=== PATIENT | female | born 1990 | race African-American/Black ===

== ENCOUNTER 2016-09-05 13:51 | Emergency (ER) | payer OTHER ==
[~2016-09-05] VITALS: Ht 180.3 cm; Wt 118.0 kg
[~2016-09-05 13:51] MED LIST: ALBU1AER9 INH; BUPR150T5 PO; BUSP15TA70 PO; SYMIN/8045 INH; [UNRECOGNIZED DRUG - CODE] IO; [UNRECOGNIZED DRUG - CODE] OPR
[2016-09-05 13:55] VITALS: TEMP 36.9; Ht 180.3 cm; Wt 118.0 kg
[2016-09-05] MEDS ORDERED: OXYCODONE HCL IR 5 MG TAB (IMMEDIATE RELEASE) PO STA (14:21)
--- NOTE | 2016-09-05 15:20 | DIAGNOSTIC IMAGING REPORT ---
CERVICAL SPINE 6 VIEWS CLINICAL HISTORY: Right cervical radiculopathy. FINDINGS: AP, lateral, bilateral oblique, swimmer's, and odontoid views of the cervical spine are obtained. No prior studies are available for comparison at the time of dictation. The skeletal structures are well mineralized. There is no radiographic evidence of fracture or subluxation. The odontoid process and lateral masses appear intact on the open mouth view. The spinolaminar line is preserved. Vertebral body height and alignment are maintained. There is mild straightening of the cervical lordosis. The spinous processes appear intact. The intervertebral disc spaces are normal. There is no evidence of neuroforaminal stenosis on the oblique views. The prevertebral soft tissues are within normal limits. Visualized apical lung parenchyma appears clear. IMPRESSION: Unremarkable radiographic assessment of the cervical spine. Electronically signed by: Aneesh Fowler M.D. 09/05/2016 3:18 PM Dictated Date/Time: 09/05/2016 3:17 PM
[2016-09-05] MEDS ORDERED: IBUP-1428 PO (15:26)
[2016-09-05] MEDS ORDERED: OXYC1TAB3 PO (15:26)
[2016-09-05] MEDS ORDERED: METH4PAK PO (15:26)
[2016-09-05 15:45] VITALS: BP 113/67; PULSE 75; O2SAT 100
[2016-09-05] MEDS ORDERED: OXYCODONE IR HOME PACK PO ONE (15:45)
--- NOTE | 2016-09-05 21:33 | EMERGENCY ROOM VISIT NOTE ---
History First contact with patient: 14:14 Chief Complaint: NECK PAIN Stated Complaint: NECK AND BACK, SHOULDER STIFF AND PAINFUL- History of Present Illness The patient is a 25 year old female who presents to the Emergency Room with complaints of severe neck pain radiating into her right shoulder, right subscapular region and right upper arm. The patient reports that her symptoms developed at work. 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 She does not recall any specific injury. She did advise her shift production supervisor of her discomfort. The patient denies any prior history of neck injuries or chronic neck pain. Her pain is worsened with movement of the neck. She denies any chest pain, shortness of breath or headache. She rates her discomfort a 10 out of 10 which is worsened with movement of the neck. Review of Systems 10 system review was performed and was negative except for pertinent positives and negatives as indicated in history of present illness Past Medical/Surgical History Medical Problems: (1) Asthma (2) Bronchitis Family History Diabetes mellitus Hypertension Social History Smoking Status: Never Smoker Alcohol Use: occasionally Drug Use: none Marital Status: single Housing Status: lives with family Occupation Status: employed Current/Historical Medications Scheduled Methylprednisolone (Medrol Dosepak), 0 PO DAILY Scheduled PRN Ibuprofen (Motrin), 800 MG PO Q8H PRN for Pain Oxycodone Ir (Roxicodone Ir), 1-2 TAB PO Q4H PRN for Pain Allergies Coded Allergies: No Known Allergies (Unverified , 09/05/16) Physical Exam Vital Signs Date Time Temp Pulse Resp B/P Pulse Ox O2 Delivery O2 Flow Rate FiO2 09/05/16 15:45 75 18 113/67 100 09/05/16 13:55 36.9 73 16 131/80 98 Room Air Physical Exam CONSTITUTIONAL: Obese female, alert and oriented X 3 with positive affect. Patient appears in moderate discomfort and is crying. HEENT: Normocephalic, atraumatic. Pupils equal, round and reactive. Ears and nares are clear. No subconjunctival hemorrhage or scleral icterus. NECK: Examination shows mild tenderness to palpation through the right lower cervical nerve root region. No muscle rigidity or spasm noted. Positive left lateral gaze test. RESPIRATORY: Clear to auscultation bilaterally with no wheezing, crackles, rhonchi or stridor. CARDIOVASCULAR: Regular rate and rhythm with no murmurs, rubs or gallops. MUSCULOSKELETAL: Examination shows tenderness to palpation through the right interscapular border. Range of motion of the shoulder does not worsen her pain. No focal tenderness to palpation over the scapula, clavicle or acromioclavicular joint. Equal hand senior solutions consultant bilaterally. Distal pulses are intact. INTEGUMENTARY: No rash or other significant dermatologic conditions noted. NEUROLOGIC: No focal neurologic deficits noted. Right upper extremity median, radial and ulnar motor and sensory are intact. Deltoid sensation is intact. Medical Decision & Procedures ER Provider Diagnostic Interpretation: My interpretation of cervical spine x-rays does not show any acute fractures, subluxation or lordotic reversal. Radiologist report is as follows: CERVICAL SPINE 6 VIEWS CLINICAL HISTORY: Right cervical radiculopathy. FINDINGS: AP, lateral, bilateral oblique, swimmer's, and odontoid views of the cervical spine are obtained. No prior studies are available for comparison at the time of dictation. The skeletal structures are well mineralized. There is no radiographic evidence of fracture or subluxation. The odontoid process and lateral masses appear intact on the open mouth view. The spinolaminar line is preserved. Vertebral body height and alignment are maintained. There is mild straightening of the cervical lordosis. The spinous processes appear intact. The intervertebral disc spaces are normal. There is no evidence of neuroforaminal stenosis on the oblique views. The prevertebral soft tissues are within normal limits. Visualized apical lung parenchyma appears clear. IMPRESSION: Unremarkable radiographic assessment of the cervical spine. Medications Administered Medications (Trade) Dose Ordered Sig/Isabel Route Start Time Stop Time Status Last Admin Dose Admin Oxycodone HCl (Roxicodone Immediate Rel Tab) 5 mg NOW STAT PO 09/05/16 14:21 09/05/16 14:22 DC 09/05/16 14:34 5 MG Prednisone (PredniSONE TAB) 60 mg NOW STAT PO 09/05/16 14:21 09/05/16 14:22 DC 09/05/16 14:34 60 MG Oxycodone HCl (Roxicodone Immediate Rel 5MG Home Pack) 1 homepack UD ONCE PO 09/05/16 15:45 09/05/16 15:46 DC 09/05/16 15:41 1 HOMEPACK ED Course Patient history and physical exam were performed. Nurse's notes were reviewed. The patient refused any intramuscular or parenteral analgesics. She was administered OxyIR 5 mg and prednisone 60 mg orally. X-rays of the cervical spine were normal. The patient was advised that her history and clinical exam is consistent with an acute cervical radiculitis. She was encouraged to intermittently apply ice to the base of the neck. She was encouraged to avoid sleeping on her side or stomach. The patient was provided a prescription for a Medrol Dosepak and OxyIR 5 mg. She was encouraged to alternate ibuprofen and Tylenol for baseline pain relief. The patient was instructed to follow-up with her Worker's Compensation physician for further reevaluation and management. The patient voiced understanding of all discharge instructions, was happy with plan of care, and rated her pain a 5 out of 10 at the conclusion of my exam. Medical Decision Impression Primary Impression: Radiculitis of right cervical region Departure Information Dispostion Home / Self-Care Prescriptions Ibuprofen (Motrin) 800 Mg Tab 800 MG PO Q8H Y for Pain, #30 TAB For Initial Treatment Prov: Saad Hatch PA 09/05/16 Oxycodone Ir (Roxicodone Ir) 5 Mg Tab 1-2 TAB PO Q4H Y for Pain, #15 TAB For Initial Treatment Prov: Saad Hatch PA 09/05/16 Methylprednisolone (MEDROL DOSEPAK) 4 Mg Bashir 0 PO DAILY, #1 PKT Prov: Saad Hatch PA 09/05/16 Forms HOME CARE DOCUMENTATION FORM, IMPORTANT VISIT INFORMATION Patient Instructions [facility], ED Cervical Radiculopathy Additional Instructions Intermittently apply ice to neck. Avoid sleeping on your side or stomach. Ibuprofen 800 mg and/or Tylenol 1000 mg every 8 hours. You may also alternate these medications for more effective pain relief: Ibuprofen --4 HRS--> Tylenol --4 HRS--> ibuprofen --4 HRS--> Tylenol .... Take Medrol Dosepak as prescribed. OxyIR if needed for worse pain. Do not drink or drive while taking OxyIR. Follow-up with your Worker's Compensation physician for further reevaluation and management.
== END 2016-09-05 15:45 | disposition home or self-care (01) ==
LOC: C.EDB 13:53 → C.EDD 15:45
DX: M54.12 Radiculopathy, cervical region (principal); E66.9 Obesity, unspecified; J45.909 Unspecified asthma, uncomplicated; Z82.49 Family history of ischemic heart disease and other diseases of the circulatory system; Z83.3 Family history of diabetes mellitus

== ENCOUNTER 2017-04-07 20:00 | Emergency (ER) | payer OTHER ==
[~2017-04-07] VITALS: Ht 177.8 cm; Wt 128.2 kg
[2017-04-07 20:08] VITALS: TEMP 37; Ht 177.8 cm; Wt 128.2 kg
[2017-04-07 20:47] LABS: URINE APPEARANCE CLEAR (CLEAR); URINE BILIRUBIN NEG (NEG); URINE COLOR YELLOW; URINE NITRITE NEG (NEG); URINE PH 6.5 (4.5-7.5); URINE SPECIFIC GRAVITY 1.022 (1.000-1.030); UROBILINOGEN NEG (NEG)
[2017-04-07 20:56] LABS: MANUAL MICROSCOPIC REQUIRED? NO; REVIEW REQ? NO
--- NOTE | 2017-04-07 21:01 | EMERGENCY ROOM VISIT NOTE ---
History Report prepared by Hilario: Ajit Fernandez Under the Supervision of: Dr. Dominic Ayala M.D. First contact with patient: 20:19 Chief Complaint: SYNCOPE (NEAR SYNCOPE) Stated Complaint: ALMOST FAINTED, FEEL WEAK, ABDOMINAL PAIN History of Present Illness The patient is a 26 year old black female with a past medical history of a c- section, asthma, ovarian cyst who presents to the ED with a cc of fatigue 2 days after receiving the flu shot. The patient received a flu shot a week ago. She reports she works at [employer] and does not think that she was exposed to illness. She was feeling lightheaded and weak today and decided to present. Positive right-sided lower abdominal pain, nausea, left-sided chest pain under her breast, not exertional, weight gain. Negative swelling in her legs, problems eating and drinking, vomiting, drug, alcohol, tobacco, recent antibiotic use, abnormal menstrual period. Patient also was concerned about not being able to climax. Source of History: patient Onset: seven days ago Position: other (global) Quality: other (dizziness) Timing: constant Associated Symptoms: + chest pain, + nausea, + abdominal pain, No vomiting Note: Associated symptoms: weight gain Denies: problems eating or drinking Review of Systems See HPI for pertinent positives and negatives. A total of ten systems were reviewed and were otherwise negative. Past Medical & Surgical Medical Problems: (1) Asthma (2) Bronchitis (3) Ovarian cyst Surgical Problems: (1) Previous section Family History Diabetes mellitus FH: ovarian cancer Hypertension Social History Smoking Status: Former Smoker Smokeless Tobacco Use: No Alcohol Use: none Drug Use: none Marital Status: single Housing Status: lives with family Occupation Status: employed Current/Historical Medications No Active Prescriptions or Reported Meds Allergies Coded Allergies: No Known Allergies (Unverified , 04/07/17) Physical Exam Vital Signs Date Time Temp Pulse Resp B/P (MAP) Pulse Ox O2 Delivery O2 Flow Rate FiO2 04/08/17 00:21 74 18 126/68 97 Room Air 04/07/17 22:58 74 20 121/61 98 Room Air 04/07/17 21:17 70 20 122/70 99 Room Air 82 125/75 86 127/83 04/07/17 21:17 82 20 125/75 99 Room Air 04/07/17 21:17 99 Room Air 04/07/17 20:08 37.0 80 20 134/82 100 Room Air Physical Exam GENERAL: Awake, alert, well-appearing, NAD HENT: Normocephalic, atraumatic. EYES: Normal conjunctiva. Sclera non-icteric. NECK: Supple. No nuchal rigidity. FROM. RESPIRATORY: CTAB, no rhonchi, wheezing, crackles CARDIAC: RRR, no MRG ABDOMEN: Soft, NTND, BS+, Surgical scars noted. Negative obturator. Negative psoas. MSK: No chest wall TTP, no LE edema NEURO: GCS 15, CN 2-12 intact, moves all 4s on command SKIN: No rash or jaundice noted. Medical Decision & Procedures ER Provider Diagnostic Interpretation: US pelvic/endovag: Uterus and endometriium are within normal limits. Probable involuting follicle or cyst within the right ovary measured 2.1 cm. Otherwise, the ovaries are unremarkable. No torsion. No free fluid within the pelvis Radiologist: Curtis Hill MD Laboratory Results 04/07/17 20:50 Red Blood Count 4.27, Mean Corpuscular Volume 88.5, Mean Corpuscular Hemoglobin 28.6, Mean Corpuscular Hemoglobin Concent 32.3, Mean Platelet Volume 8.9, Neutrophils (%) (Auto) 45.3, Lymphocytes (%) (Auto) 40.0, Monocytes (%) (Auto) 11.8, Eosinophils (%) (Auto) 2.7, Basophils (%) (Auto) 0.1, Neutrophils # (Auto ) 3.06, Lymphocytes # (Auto) 2.71, Monocytes # (Auto) 0.80, Eosinophils # (Auto ) 0.18, Basophils # (Auto) 0.01 04/07/17 20:50 Test 04/07/17 20:35 04/07/17 20:50 Urine Color YELLOW Urine Appearance CLEAR (CLEAR) Urine pH 6.5 (4.5-7.5) Urine Specific [place] 1.022 (1.000-1.030) Urine Protein NEG (NEG) Urine Glucose (UA) NEG (NEG) Urine Ketones NEG (NEG) Urine Occult Blood NEG (NEG) Urine Nitrite NEG (NEG) Urine Bilirubin NEG (NEG) Urine Urobilinogen NEG (NEG) Urine Leukocyte Esterase NEG (NEG) Urine Test NEG (NEG) White Blood Count 6.77 K/uL (4.8-10.8) Red Blood Count 4.27 M/uL (4.2-5.4) Hemoglobin 12.2 g/dL (12.0-16.0) Hematocrit 37.8 % (37-47) Mean Corpuscular Volume 88.5 fL (80-100) Mean Corpuscular Hemoglobin 28.6 pg (25-34) Mean Corpuscular Hemoglobin Concent 32.3 g/dl (32-36) Platelet Count 230 K/uL (130-400) Mean Platelet Volume 8.9 fL (7.4-10.4) Neutrophils (%) (Auto) 45.3 % Lymphocytes (%) (Auto) 40.0 % Monocytes (%) (Auto) 11.8 % Eosinophils (%) (Auto) 2.7 % Basophils (%) (Auto) 0.1 % Neutrophils # (Auto) 3.06 K/uL (1.4-6.5) Lymphocytes # (Auto) 2.71 K/uL (1.2-3.4) Monocytes # (Auto) 0.80 K/uL (0.11-0.59) Eosinophils # (Auto) 0.18 K/uL (0-0.5) Basophils # (Auto) 0.01 K/uL (0-0.2) RDW Standard Deviation 40.0 fL (36.4-46.3) RDW Coefficient of Variation 12.4 % (11.5-14.5) Immature Granulocyte % (Auto) 0.1 % Immature Granulocyte # (Auto) 0.01 K/uL (0.00-0.02) Anion Gap 9.0 mmol/L (3-11) Est Creatinine Clear Calc Drug Dose 121.8 ml/min Estimated GFR () 87.5 Estimated GFR (Non- 75.5 BUN/Creatinine Ratio 10.4 (10-20) Calcium Level 8.8 mg/dl (8.5-10.1) Phosphorus Level 2.9 mg/dl (2.5-4.9) Magnesium Level 2.1 mg/dl (1.8-2.4) Total Bilirubin 0.3 mg/dl (0.2-1) Direct Bilirubin < 0.1 mg/dl (0-0.2) Aspartate Amino Transf (AST/SGOT) 17 U/L (15-37) Alanine Aminotransferase (ALT/SGPT) 22 U/L (12-78) Alkaline Phosphatase 55 U/L (45-117) Total Protein 7.3 gm/dl (6.4-8.2) Albumin 3.6 gm/dl (3.4-5.0) Thyroid Stimulating Hormone (TSH) 1.970 uIu/ml (0.300-4.500) Laboratory results reviewed by me Medications Administered Medications (Trade) Dose Ordered Sig/Isabel Route Start Time Stop Time Status Last Admin Dose Admin Morphine Sulfate (MoRPHine SULFATE INJ) 8 mg NOW STAT IV 04/07/17 21:31 04/07/17 21:32 DC 04/07/17 22:03 8 MG Ondansetron HCl (Zofran Inj) 4 mg NOW STAT IV 04/07/17 21:31 04/07/17 21:32 DC 04/07/17 21:56 4 MG ECG Indication: abdominal pain Rate (beats per minute): 67 Rhythm: normal sinus Findings: LBBB, Q waves (lead III), other (wide QRS, Normal axis, no other STS change or TWI) ED Course 2047: The patient was evaluated in room B03B. A complete history and physical exam was performed. 2311: I reevaluated the patient after her ultrasound. She is eating and feeling better. Medical Decision The patient is a 26 year old black female with a past medical history of a c- section, asthma, ovarian cyst who presents to the ED with a cc of constant dizziness beginning seven days ago. Differential diagnoses include: appendicitis , diverticulitis, PUD, biliary pathology, UTI, pancreatitis, obstruction, mesenteric ischemia, aortic pathology, infections, inflammatory bowel disease, renal colic, as well as others were entertained. Patient was seen and evaluated the bedside. Patient had been complaining of multiple symptoms. She included lightheadedness some left-sided reproducible chest wall pain that was nonexertional without any lower extremity swelling. No history DVT or PE. Patient denies any cough fevers or chills. She denies any hemoptysis. Patient has had nausea but without vomiting. Patient is also concerned that she has had some inability to climax during sexual intercourse. Patient was also concerned about having a prior cyst and showed that she's had some right lower quadrant right lower pelvic pain. Patient denies any vaginal bleeding or discharge. Patient denies any dysuria or history of kidney stones. Patient is a very soft abdomen on exam but given the patient's history a ultrasound was obtained. Patient did have her blood work completed which showed that she had no abnormalities in her blood work. Patient's urinalysis was negative. UPT was negative. Patient did have a negative chest film. Patient's ultrasound was negative acute. ECG NSR, isolated Q wave and borderline wide QRS and LBBB pattern. Patient ambulated, had no pain, no exertional symptoms and no chest pain. There are no prior EKGs to compare. EKG does show prolonged QTc. Given that her fatigue and lightheadedness was without palpitations and primarily after receiving a flu shot with infectious symptoms, this is more likely to be an incidental finding. Nevertheless, she was told she needs to follow up as outpatient with cardiology for further evaluation. Upon reassessment patient was feeling much improved. Patient furthermore was able to eat without issue. Do not believe the patient requires any surgical or medical management this time. Patient is feeling well. After discussion with patient she is agreeable to outpatient follow up. Patient was deemed suitable for outpatient follow-up and treatment. All questions were answered. Patient was given strict follow-up, discharge, and return precautions. All questions were answered. Patient was deemed suitable for outpatient follow-up at this time. Patient agreed with the plan of care and was safely discharged home. Of note I did review the patient's chart and EKG after discharge. After reviewing the EKG a second time I was concerned about undiagnosed WPW given the short MT and wide QRS and likely delta wave. I called our welfare case worker and had them arrange appropriate follow up which we discussed as PCP and/or cardiology f /u JANIA w/ expectation if only PCP f/u was obtained this would be done so w/ expectation to obtain cards referral. Impression Primary Impression: Abdominal pain Additional Impressions: Fatigue URI (upper respiratory infection) Yxaid-Texwebvtk-Wrlfe (WPW) pattern seen on electrocardiography Scribe Attestation The scribe's documentation has been prepared under my direction and personally reviewed by me in its entirety. I confirm that the note above accurately reflects all work, treatment, procedures, and medical decision making performed by me. Departure Information Dispostion Home / Self-Care Prescriptions No Active Prescriptions or Reported Meds Referrals No Doctor, Assigned (PCP) Wyatt Hoover MD Patient Instructions Abdominal Pain, My [facility] Additional Instructions Please return to the emergency department if you have worsening or recurrent symptoms not amenable to at-home treatment. Please call for a follow-up appointment with her primary care physician. Please take your medications as prescribed. If you have other concerns and/or complaints please feel free to also call your primary care physician's office or return the ED for further evaluation, management, and treatment. You received narcotic or benzodiazepene medication while in the emergency room today. This is an addictive medication that may cause drowziness as well as constipation. Do not drive, operate heavy machinery, or drink alcohol under the influence of this medication. You may take 600 mg Ibuprofen every 6 hours as needed for pain with food for no more than 2 consecutive days. You may take tylenol 1000 mg every 6 hours as needed for pain. You may take motrin and tylenol separately or at the same time. Take your medications as prescribed. If taking an antibiotic consider taking a probiotic and/or eating yogurt, but at the least, please take with food as it can cause upset stomach. You have been examined and treated today on an emergency basis only. This is not a substitute for, or an effort to provide, complete comprehensive medical care. It is impossible to recognize and treat all injuries or illnesses in a single emergency department visit. It is therefore important that you follow up closely with [facility], your PCP, and/or your specialist(s). Call as soon as possible for an appointment. Thank you for your time and consideration. I look forward to speaking with you again soon. Please don't hesitate to call us if you have any questions. Problem Qualifiers Primary Impression: Abdominal pain Abdominal location: right lower quadrant Qualified Codes: R10.31 - Right lower quadrant pain Additional Impressions: Fatigue Fatigue type: unspecified Qualified Codes: R53.83 - Other fatigue URI (upper respiratory infection) URI type: unspecified URI Qualified Codes: J06.9 - Acute upper respiratory infection, unspecified
[2017-04-07 21:02] LABS: BASO % 0.1 %; BASO ABS # 0.01 K/uL (0-0.2); COMPLETE YES; EOS % 2.7 %; HEMATOCRIT 37.8 % (37-47); IG% 0.1 %; LYMPH ABS # 2.71 K/uL (1.2-3.4); MEAN CELL VOLUME 88.5 fL (80-100); MEAN CORPUSCULAR HEMOGLOBIN 28.6 pg (25-34); MEAN CORPUSCULAR HGB CONC 32.3 g/dl (32-36); MEAN PLATELET VOLUME 8.9 fL (7.4-10.4); MONO % 11.8 %; NEUT % 45.3 %; PLATELET COUNT 230 K/uL (130-400); RED BLOOD COUNT 4.27 M/uL (4.2-5.4); WHITE BLOOD COUNT 6.77 K/uL (4.8-10.8)
--- NOTE | 2017-04-07 21:16 | DIAGNOSTIC IMAGING REPORT ---
CHEST ONE VIEW PORTABLE HISTORY: EVALUATE ALTERED MENTAL STATUS/WEAKNESS COMPARISON: Chest 01/03/2016. FINDINGS: The lungs are clear. Cardiac silhouette is normal in size. No pleural effusions. No pneumothorax. IMPRESSION: No acute process. Electronically signed by: Edu Archibald M.D. 04/07/2017 9:15 PM Dictated Date/Time: 04/07/2017 9:15 PM
[2017-04-07 21:17] VITALS: O2SAT 99
[2017-04-07 21:27] LABS: ALT/SGPT 22 U/L (12-78); BLOOD UREA NITROGEN 11 mg/dl (7-18); BUN/CREATININE RATIO 10.4 (10-20); CALCIUM 8.8 mg/dl (8.5-10.1); CARBON DIOXIDE 28 mmol/L (21-32); CHLORIDE 103 mmol/L (98-107); CREATININE 1.03 mg/dl (0.60-1.20); GLUCOSE 82 mg/dl (70-99); MAGNESIUM 2.1 mg/dl (1.8-2.4); POTASSIUM 3.8 mmol/L (3.5-5.1); SODIUM 139 mmol/L (136-145)
[2017-04-07] MEDS ORDERED: ONDANSETRON INJ 2 MG/ML 2 ML VIAL IV STA (21:31)
[2017-04-07] MEDS ORDERED: MoRPHine SULFATE 10 MG/ML CARP/VIAL IV STA (21:31)
[2017-04-07 21:38] LABS: ALKALINE PHOSPHATASE 55 U/L (45-117); AST/SGOT 17 U/L (15-37); PHOSPHORUS 2.9 mg/dl (2.5-4.9)
[2017-04-08 00:21] VITALS: BP 126/68; PULSE 74; O2SAT 97
--- NOTE | 2017-04-08 06:51 | DIAGNOSTIC IMAGING REPORT ---
PELVIC COMPLETE NON OB CLINICAL HISTORY: R lower abdominal pain; prior h/o of ovarian cyst PAIN. COMPARISON STUDY: 10/12/2015 FINDINGS: The uterus measured 11 cm. The endometrial stripe measured 12 mm. The right ovary measured 2.3 cm. 2 cm right ovarian cyst The left ovary measured 2.1 cm. There is no ultrasonographic evidence of ovarian torsion. It should be noted that ovarian torsion can be present with normal Doppler ultrasonographic findings. There was no evidence of pathologic free pelvic fluid. IMPRESSION: 1. 2 cm right ovarian cyst. 2. Mild thickening of the endometrium 12 mm unchanged in the prior study. 3. Normal vascular flow to both ovaries. The above report was generated using voice recognition software. It may contain grammatical, syntax or spelling errors. Electronically signed by: Gary Sullivan M.D. 04/08/2017 6:49 AM Dictated Date/Time: 04/08/2017 6:47 AM
== END 2017-04-08 00:23 | disposition home or self-care (01) ==
LOC: C.EDB 20:01
DX: R10.31 Right lower quadrant pain (principal); R53.83 Other fatigue; J06.9 Acute upper respiratory infection, unspecified; I45.6 Pre-excitation syndrome; J45.909 Unspecified asthma, uncomplicated; N83.209 Unspecified ovarian cyst, unspecified side; I44.7 Left bundle-branch block, unspecified; Z87.891 Personal history of nicotine dependence; Z83.3 Family history of diabetes mellitus; Z82.49 Family history of ischemic heart disease and other diseases of the circulatory system; Z80.41 Family history of malignant neoplasm of ovary

== ENCOUNTER 2017-07-02 20:31 | Emergency (ER) | payer OTHER ==
[~2017-07-02] VITALS: Ht 180.3 cm; Wt 126.4 kg
[2017-07-02 20:41] VITALS: TEMP 37; Ht 180.3 cm; Wt 126.4 kg
[2017-07-02] MEDS ORDERED: CEFTRIAXONE SOD INJ 1 GM ADDVIAL IV STA (21:16)
[2017-07-02] MEDS ORDERED: KETOROLAC TROMETHAMINE 30 MG/ML VIAL IV STA (21:16)
[2017-07-02] MEDS ORDERED: HYDROCODONE/HOMATROPINE SYRUP 5MG/1.5MG 5ML UDP PO STA (21:16)
[2017-07-02] MEDS ORDERED: AMOXICILLIN/CLAVULANATE TAB 875 MG TAB PO ONE (21:30)
--- NOTE | 2017-07-02 21:32 | EMERGENCY ROOM VISIT NOTE ---
History Report prepared by Hilario: Savi Desouza Under the Supervision of: Dr. Nirav Sol M.D. 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 She notes the pain in her mouth is aching. She states that she also has a sore throat and a headache. Source of History: patient Onset: 5 days bta Position: head (face), teeth Symptom Intensity: unbearable Quality: ache Associated Symptoms: + headache, + sorethroat Review of Systems See HPI for pertinent positives & negatives. A total of 10 systems reviewed and were otherwise negative. Past Medical & Surgical Medical Problems: (1) Asthma (2) Bronchitis (3) Ovarian cyst Surgical Problems: (1) Previous section Family History Diabetes mellitus FH: ovarian cancer Hypertension Social History Smoking Status: Never Smoker Alcohol Use: none Drug Use: none Marital Status: single Housing Status: lives with family Occupation Status: employed Current/Historical Medications Scheduled Amoxicillin & Pot Clavulanate (Augmentin 875-125 mg), 1 TAB PO BID Fluticasone Propionate (Inhala (Flovent Diskus), 2 PUFFS INH BID Mometasone Furoate (Nasal) (Mometasone Furoate), 2 SPRAYS CHRISTINE DAILY Sertraline (Zoloft), 50 MG PO DAILY Scheduled PRN Levalbuterol Tartrate (Levalbuterol Tartrate Hfa), 1 PUFF INH Q4H PRN for Wheezing Oxycodone/Acetaminophen 5MG/325MG (Percocet 5MG/325MG), 1-2 TABLETS PO Q6 PRN for Pain Allergies Coded Allergies: No Known Allergies (Unverified , 04/07/17) Physical Exam Vital Signs Date Time Temp Pulse Resp B/P (MAP) Pulse Ox O2 Delivery O2 Flow Rate FiO2 07/02/17 22:28 70 18 140/69 99 Room Air 07/02/17 20:41 37.0 72 18 133/83 99 Room Air Physical Exam GENERAL: Patient is a healthy-appearing well-nourished female HEAD: Normocephalic atraumatic. no evidence of Og's angina. Able to swallow her own saliva. Tender to the left zygomatic arch. Poor dentition to her molars. EYES: Ocular movements intact pupils equal and react to light OROPHARYNX mucous membranes are moist no exudates present no erythema or edema present NECK: Supple no nuchal rigidity CHEST: Good equal expansion LUNGS: Clear and equal to auscultation CARDIAC: Normal S1 and S2 ABDOMEN: Soft nontender no guarding BACK: No CVA tenderness EXTREMITIES: No pain upon palpation normal muscle strength in all groups no clubbing cyanosis or edema NEURO: Patient is following commands and answering questions appropriately. Alert and oriented x3 Cranial Nerves 2-12 grossly intact Medical Decision & Procedures ER Provider Diagnostic Interpretation: Radiology results as stated below per my review and radiologist interpretation: FACIAL BONES-MXILLOFAC WITHOUT CLINICAL HISTORY: 26 years-old Female presenting with Pt c/o facial swelling, recent dental work on the right. TECHNIQUE: Multidetector CT of the face was performed without the use of intravenous contrast. IV contrast: None. A dose lowering technique was used consistent with the principles of ALARA (as low as reasonably achievable). COMPARISON: 04/30/2015. CT DOSE (mGy.cm): The estimated cumulative dose is 659.52 mGy.cm. FINDINGS: Lining Mechanic topogram: Unremarkable. Mild mucosal thickening in the left maxillary sinus. Remainder of paranasal sinuses and mastoid air cells clear. Dental caries noted diffusely in the maxillary teeth most prominently in the right maxillary third molar and left maxillary second premolar and first molar. The left maxillary first premolar also demonstrates periapical lucency. No other sites of periapical lucency. No significant superficial soft tissue inflammatory change. No evidence of odontogenic abscess allowing for noncontrast technique. Numerous prominent lymph nodes likely reactive. Upper cervical spine normal. IMPRESSION: 1. Extensive dental caries most pronounced in the maxillary teeth. 2. Periapical lucency at the left maxillary first premolar raises concern for periapical abscess. 3. No extensive evidence of odontogenic inflammatory change or odontogenic abscess. Electronically signed by: Julio De La Paz M.D. 07/02/2017 10:25 PM Dictated Date/Time: 07/02/2017 10:20 PM Laboratory Results 07/02/17 21:26 Red Blood Count 4.42, Mean Corpuscular Volume 88.9, Mean Corpuscular Hemoglobin 28.5, Mean Corpuscular Hemoglobin Concent 32.1, Mean Platelet Volume 8.8, Neutrophils (%) (Auto) 42.7, Lymphocytes (%) (Auto) 46.4, Monocytes (%) (Auto) 8.8, Eosinophils (%) (Auto) 1.8, Basophils (%) (Auto) 0.3, Neutrophils # (Auto) 2.57, Lymphocytes # (Auto) 2.80, Monocytes # (Auto) 0.53, Eosinophils # (Auto) 0.11, Basophils # (Auto) 0.02 07/02/17 21:26 Test 07/02/17 21:26 07/02/17 21:28 White Blood Count 6.03 K/uL (4.8-10.8) Red Blood Count 4.42 M/uL (4.2-5.4) Hemoglobin 12.6 g/dL (12.0-16.0) Hematocrit 39.3 % (37-47) Mean Corpuscular Volume 88.9 fL (80-100) Mean Corpuscular Hemoglobin 28.5 pg (25-34) Mean Corpuscular Hemoglobin Concent 32.1 g/dl (32-36) Platelet Count 304 K/uL (130-400) Mean Platelet Volume 8.8 fL (7.4-10.4) Neutrophils (%) (Auto) 42.7 % Lymphocytes (%) (Auto) 46.4 % Monocytes (%) (Auto) 8.8 % Eosinophils (%) (Auto) 1.8 % Basophils (%) (Auto) 0.3 % Neutrophils # (Auto) 2.57 K/uL (1.4-6.5) Lymphocytes # (Auto) 2.80 K/uL (1.2-3.4) Monocytes # (Auto) 0.53 K/uL (0.11-0.59) Eosinophils # (Auto) 0.11 K/uL (0-0.5) Basophils # (Auto) 0.02 K/uL (0-0.2) RDW Standard Deviation 40.8 fL (36.4-46.3) RDW Coefficient of Variation 12.6 % (11.5-14.5) Immature Granulocyte % (Auto) 0.0 % Immature Granulocyte # (Auto) 0.00 K/uL (0.00-0.02) Anion Gap 3.0 mmol/L (3-11) Est Creatinine Clear Calc Drug Dose 134.3 ml/min Estimated GFR () 97.7 Estimated GFR (Non- 84.3 BUN/Creatinine Ratio 8.0 (10-20) Calcium Level 9.0 mg/dl (8.5-10.1) Total Bilirubin 0.2 mg/dl (0.2-1) Direct Bilirubin < 0.1 mg/dl (0-0.2) Aspartate Amino Transf (AST/SGOT) 14 U/L (15-37) Alanine Aminotransferase (ALT/SGPT) 20 U/L (12-78) Alkaline Phosphatase 51 U/L (45-117) Total Protein 7.5 gm/dl (6.4-8.2) Albumin 3.6 gm/dl (3.4-5.0) Urine Color YELLOW Urine Appearance CLOUDY (CLEAR) Urine pH 5.5 (4.5-7.5) Urine Specific [place] 1.029 (1.000-1.030) Urine Protein NEG (NEG) Urine Glucose (UA) NEG (NEG) Urine Ketones TRACE (NEG) Urine Occult Blood NEG (NEG) Urine Nitrite NEG (NEG) Urine Bilirubin NEG (NEG) Urine Urobilinogen NEG (NEG) Urine Leukocyte Esterase NEG (NEG) Urine WBC (Auto) 5-10 /hpf (0-5) Urine RBC (Auto) 0-4 /hpf (0-4) Urine Hyaline Casts (Auto) 1-5 /lpf (0-5) Urine Epithelial Cells (Auto) >30 /lpf (0-5) Urine Bacteria (Auto) 1+ (NEG) Date/Time Source Procedure Growth Status 07/02/17 21:15 Throat Group A Streptococcus Screen - Final SPECIMEN NEGATIVE FOR GROUP A BETA ST... Complete 07/02/17 21:15 Throat Group A Streptococcus Screen (GHADA) - Final NO BETA STREP. ISOLATED. Complete Labs reviewed by ED physician. Medications Administered Medications (Trade) Dose Ordered Sig/Isabel Route Start Time Stop Time Status Last Admin Dose Admin Ketorolac Tromethamine (Toradol Inj) 30 mg NOW STAT IV 07/02/17 21:16 07/02/17 21:20 DC 07/02/17 21:24 30 MG Ceftriaxone Sodium (Rocephin Inj) 1 gm NOW STAT IV 07/02/17 21:16 2/10/18 21:20 DC 07/02/17 21:24 1 GM Hydrocodone Bit/ Homatropine Methylb (Hycodan Syrup) 5 ml NOW STAT PO 07/02/17 21:16 07/02/17 21:20 DC 07/02/17 21:24 5 ML Amoxicillin/ Clavulanate Potassium (Augmentin Tab) 875 mg ONE ONCE PO 07/02/17 21:30 07/02/17 21:31 DC 07/02/17 21:24 875 MG Amoxicillin/ Clavulanate Potassium (Augmentin 875MG Home Pack) 1 homepack UD STAT PO 07/02/17 22:34 07/02/17 22:35 DC 07/02/17 22:41 1 HOMEPACK Oxycodone/ Acetaminophen (Percocet 5/ 325MG Home Pack) 1 homepack UD STAT PO 07/02/17 22:34 07/02/17 22:35 DC 07/02/17 22:40 1 HOMEPACK ED Course 2112: Past medical records reviewed. The patient was evaluated in room C7. A complete history and physical examination was performed. 2115: Hycodan Syrup 5 ml PO Rocephin Inj 1 gm IV Toradol Inj 30 mg IV 2129: Augmentin Tab 875 mg PO 2232: Upon reexamination the patient is content. I discussed results and treatment plan with the patient. She verbalizes agreement and understanding. The patient is ready for discharge. Medical Decision Differential diagnosis: Etiologies such as dental pain, headache, meningitis, sinusitis, CO exposure, ICH, SAH, infection, tumor, headache, sinus thrombosis, arterial dissection, as well as others were entertained. This is a 26-year-old female who presents emergency department complaining of pain as well as swelling to the left zygomatic arch. Based on this and using shared medical decision-making, the decision was made to CAT scan this patient' s facial bones. She does not appear to have any evidence of facial cellulitis. She does not have an elevation in her white blood count cell count therefore I will treat her dental pain with antibiotics. I stressed the need for follow- up with a dentist due to the fact that this appears to be a small abscess. In addition the patient was also given Toradol, Compazine, Benadryl. Repeat examination revealed improvement the patient's symptoms. Patient was in agreement with the treatment plan. Medication Reconcilliation Current Medication List: was personally reviewed by me Blood Pressure Screening Patient's blood pressure: Normal blood pressure Impression Primary Impression: Pain, dental Scribe Attestation The scribe's documentation has been prepared under my direction and personally reviewed by me in its entirety. I confirm that the note above accurately reflects all work, treatment, procedures, and medical decision making performed by me. Departure Information Dispostion Home / Self-Care Prescriptions Oxycodone/Acetaminophen 5MG/325MG (PERCOCET 5MG/325MG) Tab 1-2 TABLETS PO Q6 Y for Pain, #14 TAB PAIN Prov: Nirav Sol MD 07/02/17 Amoxicillin & Pot Clavulanate (Augmentin 875-125 mg) 1 Tab Tab 1 TAB PO BID for 10 Days, #20 TAB Prov: Nirav Sol MD 07/02/17 Referrals No Doctor, Assigned (PCP) Patient Instructions My [facility]
[2017-07-02 21:38] LABS: BASO % 0.3 %; BASO ABS # 0.02 K/uL (0-0.2); EOS % 1.8 %; EOS ABS # 0.11 K/uL (0-0.5); HEMATOCRIT 39.3 % (37-47); HEMOGLOBIN 12.6 g/dL (12.0-16.0); LYMPH % 46.4 %; MEAN CELL VOLUME 88.9 fL (80-100); MEAN CORPUSCULAR HEMOGLOBIN 28.5 pg (25-34); MEAN CORPUSCULAR HGB CONC 32.1 g/dl (32-36); MEAN PLATELET VOLUME 8.8 fL (7.4-10.4); MONO % 8.8 %; MONO ABS # 0.53 K/uL (0.11-0.59); NEUT % 42.7 %; NEUT ABS # 2.57 K/uL (1.4-6.5); PLATELET COUNT 304 K/uL (130-400); RED CELL DISTRIBUTION WIDTH CV 12.6 % (11.5-14.5); RED CELL DISTRIBUTION WIDTH SD 40.8 fL (36.4-46.3); WHITE BLOOD COUNT 6.03 K/uL (4.8-10.8)
[2017-07-02] MEDS ORDERED: LEVA45AE INH (21:40)
[2017-07-02] MEDS ORDERED: FLUT1AER4 INH (21:43)
[2017-07-02] MEDS ORDERED: MOME6000 NAE (21:45)
[2017-07-02] MEDS ORDERED: SERT50TA PO (21:46)
[2017-07-02 21:55] LABS: BLOOD UREA NITROGEN 8 mg/dl (7-18); CREATININE 0.94 mg/dl (0.60-1.20); GLUCOSE 90 mg/dl (70-99)
[2017-07-02 21:56] LABS: ALBUMIN 3.6 gm/dl (3.4-5.0); ALT/SGPT 20 U/L (12-78); CARBON DIOXIDE 31 mmol/L (21-32); POTASSIUM 3.7 mmol/L (3.5-5.1); SODIUM 139 mmol/L (136-145)
[2017-07-02 21:58] LABS: ALKALINE PHOSPHATASE 51 U/L (45-117); AST/SGOT 14 U/L (15-37); TOTAL PROTEIN 7.5 gm/dl (6.4-8.2)
--- NOTE | 2017-07-02 22:26 | DIAGNOSTIC IMAGING REPORT ---
FACIAL BONES-MXILLOFAC WITHOUT CLINICAL HISTORY: 26 years-old Female presenting with Pt c/o facial swelling, recent dental work on the right. TECHNIQUE: Multidetector CT of the face was performed without the use of intravenous contrast. IV contrast: None. A dose lowering technique was used consistent with the principles of ALARA (as low as reasonably achievable). COMPARISON: 04/30/2015. CT DOSE (mGy.cm): The estimated cumulative dose is 659.52 mGy.cm. FINDINGS: Dehydrogenation Operator topogram: Unremarkable. Mild mucosal thickening in the left maxillary sinus. Remainder of paranasal sinuses and mastoid air cells clear. Dental caries noted diffusely in the maxillary teeth most prominently in the right maxillary third molar and left maxillary second premolar and first molar. The left maxillary first premolar also demonstrates periapical lucency. No other sites of periapical lucency. No significant superficial soft tissue inflammatory change. No evidence of odontogenic abscess allowing for noncontrast technique. Numerous prominent lymph nodes likely reactive. Upper cervical spine normal. IMPRESSION: 1. Extensive dental caries most pronounced in the maxillary teeth. 2. Periapical lucency at the left maxillary first premolar raises concern for periapical abscess. 3. No extensive evidence of odontogenic inflammatory change or odontogenic abscess. Electronically signed by: Julio De La Paz M.D. 07/02/2017 10:25 PM Dictated Date/Time: 07/02/2017 10:20 PM
[2017-07-02 22:28] VITALS: BP 140/69; PULSE 70; O2SAT 99
[2017-07-02] MEDS ORDERED: PERCOCET HOME PACK PO STA (22:34)
[2017-07-02] MEDS ORDERED: AMOXICIL/CLAVU 875MG HOME PACK PO STA (22:34)
[2017-07-02] MEDS ORDERED: AMOX875T PO (22:35)
[2017-07-02] MEDS ORDERED: OXYC-57 PO (22:35)
== END 2017-07-02 22:43 | disposition home or self-care (01) ==
LOC: C.EDB 20:32 → C.EDC 22:43
DX: K08.89 Other specified disorders of teeth and supporting structures (principal); J45.909 Unspecified asthma, uncomplicated; Z83.3 Family history of diabetes mellitus; Z82.49 Family history of ischemic heart disease and other diseases of the circulatory system

== ENCOUNTER 2017-08-09 00:14 | Emergency (ER) | payer OTHER ==
[~2017-08-09] VITALS: Ht 180.3 cm; Wt 129.9 kg
[~2017-08-09 00:14] MED LIST changes: -ALBU1AER9 INH; -BUPR150T5 PO; -BUSP15TA70 PO; +CLR10 PO; +FLUT1AER4 INH; +LEVA45AE INH; +MOME6000 NAE; +SERT50TA PO; -SYMIN/8045 INH; -[UNRECOGNIZED DRUG - CODE] IO; -[UNRECOGNIZED DRUG - CODE] OPR
[2017-08-09 00:19] VITALS: TEMP 36.8; Ht 180.3 cm; Wt 129.9 kg
[2017-08-09] MEDS ORDERED: IBUP-1277 PO (00:34)
[2017-08-09] MEDS ORDERED: CLINDAMYCIN 150MG HOME PACK PO ONE (01:15)
[2017-08-09] MEDS ORDERED: HYDR-5688 PO (01:18)
[2017-08-09] MEDS ORDERED: CLIN300C2 PO (01:18)
--- NOTE | 2017-08-09 01:20 | EMERGENCY ROOM VISIT NOTE ---
History First contact with patient: 00:22 Chief Complaint: FACIAL PAIN/INJURY Stated Complaint: SWOLLEN, PAINFUL FACE History of Present Illness The patient is a 26 year old female who presents to the Emergency Room with complaints of pain on the right side of her mouth. The patient reports that she has a history of abscess in the teeth on the right side. She was prescribed antibiotics for this approximately 1 month ago but did not finish the antibiotics, because she stated they upset her stomach. She states that she has had on and off pain since then, however she has had constant pain for the past 2 days. The pain has been worse when she is lying down. She rates her discomfort at 10/10. She has had issues with teeth on both sides of the mouth and has a dentist appointment set up in 1 month. She states the face feels swollen. She denies difficulty swallowing or breathing. She has been taking ibuprofen without relief. Review of Systems A complete 10 point review of systems was reviewed with the patient with pertinent positives and negatives as per history of present illness. All else were negative. Past Medical/Surgical History Medical Problems: (1) Asthma (2) Bronchitis (3) Ovarian cyst Surgical Problems: (1) Previous section Family History Diabetes mellitus FH: ovarian cancer Hypertension Social History Smoking Status: Never Smoker Alcohol Use: none Drug Use: none Marital Status: single Housing Status: lives with family Occupation Status: employed Current/Historical Medications Scheduled Clindamycin Hcl (Cleocin), 300 MG PO QID Fluticasone Propionate (Inhala (Flovent Diskus), 2 PUFFS INH BID Loratadine (Claritin), 10 MG PO DAILY Mometasone Furoate (Nasal) (Mometasone Furoate), 2 SPRAYS CHRISTINE DAILY Sertraline (Zoloft), 50 MG PO DAILY Scheduled PRN Hydrocodone/Acetaminophen 5MG/325MG ([place] 5MG/325MG), 1 TABLET PO Q4H PRN for Pain Ibuprofen (Advil), 400-600 MG PO Q6H PRN for Pain or Fever Levalbuterol Tartrate (Levalbuterol Tartrate Hfa), 1 PUFF INH Q4H PRN for Wheezing Physical Exam Vital Signs Date Time Temp Pulse Resp B/P (MAP) Pulse Ox O2 Delivery O2 Flow Rate FiO2 08/09/17 01:26 71 18 116/66 98 08/09/17 00:19 36.8 77 18 133/77 97 Room Air Physical Exam VITALS: Vitals are noted on the nurse's note and reviewed by myself. Vital signs stable. GENERAL: This is a 26-year-old female, in no acute distress, nondiaphoretic, well-developed well-nourished. SKIN: The skin was without rashes. HEAD: Normocephalic atraumatic. No facial swelling. EARS: External auditory canals clear, tympanic membranes pearly cruz without erythema or effusion bilaterally. EYES: Pupils equal round and reactive to light and accommodation. MOUTH: Mucous membranes moist. No obvious dental decay noted. No swelling of the gums or drainage. NECK: Supple without nuchal rigidity. No lymphadenopathy. HEART: Regular rate and rhythm without murmurs gallops or rubs. LUNGS: Clear to auscultation bilaterally without wheezes, rales or rhonchi. NEURO: Patient was alert and oriented to person place and time. Medical Decision & Procedures Medications Administered Medications (Trade) Dose Ordered Sig/Isabel Route Start Time Stop Time Status Last Admin Dose Admin Clindamycin HCl (Cleocin 150MG Home Pack) 1 homepack UD ONCE PO 08/09/17 01:15 08/09/17 01:16 DC 08/09/17 01:25 1 HOMEPACK Acetaminophen/ Hydrocodone Bitart ([place] 5/325mg Home Pack) 1 homepack UD ONCE PO 08/09/17 01:30 08/09/17 01:31 DC 08/09/17 01:24 1 HOMEPACK Medical Decision Differential diagnosis includes Og's angina, periapical abscess, dental caries, facial cellulitis, among others. The patient was evaluated as above. She has no facial swelling on exam. There is no swelling of the floor of the mouth to suggest Og's angina. I do feel that her pain is likely dental in origin given the history she has had with dental caries/abscesses in that area. She will be placed on clindamycin. I had a lengthy discussion with the patient regarding the importance of finishing the course of antibiotics. She was instructed to take the medication with food and take a probiotic along with medication to help avoid GI side effects. The patient did request something for pain. I gave her a home pack and a very small amount of [place], but discussed that the ED is not the appropriate place to prescribe pain medication for her dental pain. I explained to her that in the future we will not be able to prescribe narcotics for this. She was advised to follow-up with her dentist and primary care provider regarding this. She verbalized understanding of my assessment and treatment plan was discharged home in good condition. [place] Drug Monitoring Program Search Results: patient reviewed within database, no issues identified Medication Reconcilliation Current Medication List: was personally reviewed by me Blood Pressure Screening Patient's blood pressure: Normal blood pressure Impression Primary Impression: Pain, dental Departure Information Dispostion Home / Self-Care Condition GOOD Prescriptions Clindamycin Hcl (CLEOCIN) 300 Mg Cap 300 MG PO QID for 10 Days, #40 CAP Prov: Angie De La Rosa .GURU 08/09/17 Hydrocodone/Acetaminophen 5MG/325MG ([place] 5MG/325MG) Tab 1 TABLET PO Q4H Y for Pain, #8 TAB For Initial Treatment Prov: Angie De La Rosa PA-C 08/09/17 Referrals Farida Mistry M.D. (PCP) Patient Instructions My [facility] Additional Instructions You have been treated in the Emergency Department for Dental Pain. You have been prescribed [place] to be used for pain control. This is a narcotic medication. You cannot drive or consume alcohol while on this medicine. This medicine should only be used for pain that cannot be controlled with over-the- counter pain medicines. You were prescribed Clindamycin to be taken four times daily for a total of 10 days. This is an antibiotic. All antibiotics have the potential to cause diarrhea. Stop this medication and contact a medical provider if you were to develop any significant adverse side effects including: wheezing, shortness of breath, passing out, vomiting, or a diffuse rash. Always take antibiotics as directed and COMPLETE the ENTIRE course regardless of the improvement of your symptoms. For pain control, you can use the following [id number] medicines (if >12 yo): - Regular strength (325mg/tab) Tylenol (acetaminophen) 2 tabs every 4-6 hours as needed. Do not exceed 12 tablets in a 24 hour period. Avoid taking more than 4 grams (4000 mg) of Tylenol per day. This includes any other sources of acetaminophen you may take on a regular basis. - Regular strength (200 mg/tab) Advil (ibuprofen) 1-2 tabs every 4-6 hours as needed. Do not exceed a dose of 3200 mg per day. Refrain from smoking cigarettes or using chewing tobacco until you have been evaluated by your dentist. Keeping beverages lukewarm and consuming soft foods can decrease your pain. Warm compresses over the affected area may offer some relief. You MUST seek evaluation of your dental pain by a dentist following your visit to the Emergency Department. The Emergency Department is not capable of treating dental issues long-term. You should call your dentist as soon as possible to make an appointment for evaluation of your dental pain. Return to the emergency department if you develop the following symptoms despite treatment course outlined above: fever, intractable pain, increased redness, swelling, or purulent discharge.
[2017-08-09 01:26] VITALS: BP 116/66; PULSE 71; O2SAT 98
[2017-08-09] MEDS ORDERED: NORCO 5/325MG HOME PACK PO ONE (01:30)
== END 2017-08-09 01:26 | disposition home or self-care (01) ==
LOC: C.EDB 00:15
DX: K08.89 Other specified disorders of teeth and supporting structures (principal); R51 Headache

== ENCOUNTER 2017-10-09 19:11 | Emergency (ER) | payer OTHER ==
[~2017-10-09] VITALS: Ht 182.9 cm; Wt 129.5 kg
[~2017-10-09 19:11] MED LIST changes: +HYDR-5688 PO; +IBUP-1277 PO
[2017-10-09 19:21] VITALS: TEMP 37.6; Ht 182.9 cm; Wt 129.5 kg
[2017-10-09] MEDS ORDERED: ALBUT/IPRATROP 3MG/0.5MG NEB 3 ML VIAL INH STA (19:28)
[2017-10-09] MEDS ORDERED: DiphenhydrAMINE HCL 50 MG/ML VIAL IV STA (19:28)
[2017-10-09] MEDS ORDERED: SODIUM CHLORIDE 0.9% 1000ML 2,000 ML IV STA (19:28)
[2017-10-09] MEDS ORDERED: METOCLOPRAMIDE HCL INJ 5 MG/ML 2 ML VIAL IV STA (19:28)
[2017-10-09] MEDS: ACETAMINOPHEN 500 MG TAB PO STA ×3 (19:28→20:55)
[2017-10-09] MEDS ORDERED: AMPICILLIN/SULBACTAM SOD INJ 3,000 MG in SODIUM CHLORIDE 0.9% 100ML 100 ML IV ONE (19:30)
[2017-10-09 20:16] LABS: BASO % 0.2 %; BASO ABS # 0.02 K/uL (0-0.2); EOS ABS # 0.33 K/uL (0-0.5); HEMATOCRIT 40.6 % (37-47); HEMOGLOBIN 13.7 g/dL (12.0-16.0); IG# 0.02 K/uL (0.00-0.02); LYMPH % 31.4 %; LYMPH ABS # 2.59 K/uL (1.2-3.4); MEAN CELL VOLUME 84.1 fL (80-100); MEAN CORPUSCULAR HEMOGLOBIN 28.4 pg (25-34); MEAN CORPUSCULAR HGB CONC 33.7 g/dl (32-36); MONO % 7.3 %; NEUT % 56.9 %; NEUT ABS # 4.69 K/uL (1.4-6.5); PLATELET COUNT 285 K/uL (130-400); RED CELL DISTRIBUTION WIDTH CV 12.6 % (11.5-14.5); RED CELL DISTRIBUTION WIDTH SD 38.3 fL (36.4-46.3); WHITE BLOOD COUNT 8.25 K/uL (4.8-10.8)
--- NOTE | 2017-10-09 20:25 | DIAGNOSTIC IMAGING REPORT ---
CHEST ONE VIEW PORTABLE HISTORY: EVALUATE ALTERED MENTAL STATUS/WEAKNESS COMPARISON: Chest 04/07/2017. FINDINGS: The lungs are clear. Cardiac silhouette is normal in size. No pleural effusions. No pneumothorax. IMPRESSION: No acute process. Electronically signed by: Edu Archibald M.D. 10/09/2017 8:24 PM Dictated Date/Time: 10/09/2017 8:22 PM
[2017-10-09 20:31] LABS: CALCIUM 9.1 mg/dl (8.5-10.1); CREATININE 0.87 mg/dl (0.60-1.20); POTASSIUM 3.3 mmol/L (3.5-5.1); TOTAL PROTEIN 8.2 gm/dl (6.4-8.2)
--- NOTE | 2017-10-09 20:56 | EMERGENCY ROOM VISIT NOTE ---
History Report prepared by Hilario: Claribel Curran Under the Supervision of: Dr. Aneesh Zavaleta M.D. First contact with patient: 19:26 Chief Complaint: DEHYDRATION Stated Complaint: HAS NOT SLEPT,DRANK,ATE WITHIN 3 DAYS,NO ENERGY History of Present Illness The patient is a 26 year old female who presents to the Emergency Room with complaints of worsening dehydration starting 3 days ago. The patient states that she has not been able to sleep, eat, or drink for 3 days. She reports that she is nauseous to the point that she cannot even drink water. She states that she believes that the nausea is coming from her left sided tooth pain. She notes that the tooth pain started becoming worse 5 days ago. She states that she has an infection in her tooth. She reports that she was placed on an antibiotic by her dentist. She notes that she finished the antibiotic a month ago. She states that they informed her that she needs 6 teeth pulled and has an appointment to do so coming up. The patient states that since then she found out that she is expecting. She states that she believes she is 5 weeks and 4 days along. She reports that she missed a period and had a positive home test. The patient states that this will be her third and she has 2 children at home. The patient complains of being short of breath for 2 weeks. She notes that she has asthma and has been using her inhaler with no relief. The patient denies urinary symptoms and vomiting. Source of History: patient Onset: 3 days ago Position: other (global) Quality: other (dehydration) Timing: worsening Associated Symptoms: + SOB, + nausea, No vomiting, No urinary symptoms Note: The patient complains of tooth pain, not being able to eat, not being able to sleep, and not being able to drink. Review of Systems See HPI for pertinent positives & negatives. A total of 10 systems reviewed and were otherwise negative. Past Medical & Surgical Medical Problems: (1) Asthma (2) Bronchitis (3) Ovarian cyst Surgical Problems: (1) Previous section Family History Diabetes mellitus FH: ovarian cancer Hypertension Social History Smoking Status: Never Smoker Alcohol Use: none Drug Use: none Marital Status: in relationship Housing Status: lives with family Occupation Status: employed Current/Historical Medications Scheduled Albuterol Hfa (Ventolin Hfa), 3 PUFFS INH Q6H Amoxicillin & Pot Clavulanate (Augmentin 875-125 mg), 875 MG PO BID Fluticasone Propionate (Inhala (Flovent Diskus), 2 PUFFS INH BID Scheduled PRN Metoclopramide (Reglan), 10 MG PO Q6H PRN for Nausea Allergies Coded Allergies: No Known Allergies (Unverified , 08/09/17) Physical Exam Vital Signs Date Time Temp Pulse Resp B/P (MAP) Pulse Ox O2 Delivery O2 Flow Rate FiO2 10/09/17 22:46 80 20 98 10/09/17 21:20 76 18 127/71 96 Room Air 10/09/17 19:21 37.6 77 18 144/84 97 Room Air Physical Exam GENERAL: Patient is in no acute distress. HEENT: No acute trauma, normocephalic atraumatic, mucous membranes moist, no nasal congestion, no scleral icterus. No throat erythema or exudate. Generally poor dentition. Multiple carries. No drainable abscess noted. No swelling to the floor of the mouth. NECK: No stridor, mild bilateral anterior cervical adenopathy, no meningismus, trachea is midline. LUNGS: Wheezing bilaterally. Breath sounds are equal. No respiratory distress. No crackles. HEART: Without murmurs gallops or rubs, regular rate and rhythm. ABDOMEN: Soft, nontender, bowel sounds positive, no hernias, no peritonitis. EXTREMITIES: No cyanosis or edema, full range of motion of all the joints without pain or difficulty, no signs for acute trauma. NEUROLOGIC: Oriented x 3, no acute motor or sensory deficits, no focal weakness. SKIN: No rash, no jaundice, no diaphoresis. Medical Decision & Procedures ER Provider Diagnostic Interpretation: Radiology results as stated below per my review and radiologist interpretation: CHEST ONE VIEW PORTABLE HISTORY: EVALUATE ALTERED MENTAL STATUS/WEAKNESS COMPARISON: Chest 04/07/2017. FINDINGS: The lungs are clear. Cardiac silhouette is normal in size. No pleural effusions. No pneumothorax. IMPRESSION: No acute process. Electronically signed by: Edu Archibald M.D. 10/09/2017 8:24 PM Dictated Date/Time: 10/09/2017 8:22 PM Laboratory Results 10/09/17 19:50 Red Blood Count 4.83, Mean Corpuscular Volume 84.1, Mean Corpuscular Hemoglobin 28.4, Mean Corpuscular Hemoglobin Concent 33.7, Mean Platelet Volume 9.0, Neutrophils (%) (Auto) 56.9, Lymphocytes (%) (Auto) 31.4, Monocytes (%) (Auto) 7.3, Eosinophils (%) (Auto) 4.0, Basophils (%) (Auto) 0.2, Neutrophils # (Auto) 4.69, Lymphocytes # (Auto) 2.59, Monocytes # (Auto) 0.60, Eosinophils # (Auto) 0.33, Basophils # (Auto) 0.02 10/09/17 19:50 Test 10/09/17 19:50 10/09/17 21:20 White Blood Count 8.25 K/uL (4.8-10.8) Red Blood Count 4.83 M/uL (4.2-5.4) Hemoglobin 13.7 g/dL (12.0-16.0) Hematocrit 40.6 % (37-47) Mean Corpuscular Volume 84.1 fL (80-100) Mean Corpuscular Hemoglobin 28.4 pg (25-34) Mean Corpuscular Hemoglobin Concent 33.7 g/dl (32-36) Platelet Count 285 K/uL (130-400) Mean Platelet Volume 9.0 fL (7.4-10.4) Neutrophils (%) (Auto) 56.9 % Lymphocytes (%) (Auto) 31.4 % Monocytes (%) (Auto) 7.3 % Eosinophils (%) (Auto) 4.0 % Basophils (%) (Auto) 0.2 % Neutrophils # (Auto) 4.69 K/uL (1.4-6.5) Lymphocytes # (Auto) 2.59 K/uL (1.2-3.4) Monocytes # (Auto) 0.60 K/uL (0.11-0.59) Eosinophils # (Auto) 0.33 K/uL (0-0.5) Basophils # (Auto) 0.02 K/uL (0-0.2) RDW Standard Deviation 38.3 fL (36.4-46.3) RDW Coefficient of Variation 12.6 % (11.5-14.5) Immature Granulocyte % (Auto) 0.2 % Immature Granulocyte # (Auto) 0.02 K/uL (0.00-0.02) Anion Gap 9.0 mmol/L (3-11) Est Creatinine Clear Calc Drug Dose 149.3 ml/min Estimated GFR () 107.3 Estimated GFR (Non- 92.6 BUN/Creatinine Ratio 6.1 (10-20) Calcium Level 9.1 mg/dl (8.5-10.1) Magnesium Level 1.8 mg/dl (1.8-2.4) Total Bilirubin 0.7 mg/dl (0.2-1) Aspartate Amino Transf (AST/SGOT) 20 U/L (15-37) Alanine Aminotransferase (ALT/SGPT) 33 U/L (12-78) Alkaline Phosphatase 59 U/L (45-117) Total Protein 8.2 gm/dl (6.4-8.2) Albumin 4.0 gm/dl (3.4-5.0) Globulin 4.2 gm/dl (2.5-4.0) Albumin/Globulin Ratio 1.0 (0.9-2) Human Chorionic Gonadotropin, Qual POS (NEG) Urine Color DK YELLOW Urine Appearance CLOUDY (CLEAR) Urine pH 6.5 (4.5-7.5) Urine Specific [place] 1.028 (1.000-1.030) Urine Protein NEG (NEG) Urine Glucose (UA) NEG (NEG) Urine Ketones 2+ (NEG) Urine Occult Blood NEG (NEG) Urine Nitrite NEG (NEG) Urine Bilirubin NEG (NEG) Urine Urobilinogen NEG (NEG) Urine Leukocyte Esterase NEG (NEG) Urine WBC (Auto) 1-5 /hpf (0-5) Urine RBC (Auto) 0-4 /hpf (0-4) Urine Hyaline Casts (Auto) 1-5 /lpf (0-5) Urine Epithelial Cells (Auto) >30 /lpf (0-5) Urine Bacteria (Auto) 1+ (NEG) Laboratory results reviewed by me. Medications Administered Medications (Trade) Dose Ordered Sig/Isabel Route Start Time Stop Time Status Last Admin Dose Admin Sodium Chloride 2,000 ml @ 999 mls/hr Q2H1M STAT IV 10/09/17 19:28 10/09/17 21:28 DC 10/09/17 20:02 999 MLS/HR Ampicillin Sodium/ Sulbactam Sodium 3000 mg/Sodium Chloride 108 ml @ 200 mls/hr ONE ONCE IV 10/09/17 19:30 5/20/18 20:02 DC 10/09/17 20:08 200 MLS/HR Metoclopramide HCl (Reglan Inj) 10 mg NOW STAT IV 10/09/17 19:28 10/09/17 19:37 DC 10/09/17 20:02 10 MG Diphenhydramine HCl (Benadryl Inj) 50 mg NOW STAT IV 10/09/17 19:28 10/09/17 19:37 DC 10/09/17 20:02 50 MG Acetaminophen (Tylenol Tab) 1,000 mg NOW STAT PO 10/09/17 19:28 10/09/17 19:37 DC 10/09/17 20:55 1,000 MG Albuterol/ Ipratropium (Duoneb) 3 ml NOW STAT INH 10/09/17 19:28 10/09/17 19:37 DC 10/09/17 20:02 3 ML Albuterol (Ventolin Hfa Inhaler) 2 puffs NOW ONCE INH 10/09/17 22:30 10/09/17 22:31 DC 10/09/17 22:30 2 PUFFS ED Course 1926: The patient was evaluated in room C4. A complete history and physical exam was performed. 1927: Ordered Duoneb 2 ml INH, Tylenol Tab 1000 mg PO, Benadryl Inj 50 mg IV, Reglan Inj 10 mg IV, NSS 2000 ml @ 999 mls/hr IV. 1929: Ordered Ampicillin Sodium/ Sulbactam Sodium 3000 mg/ Sodium Chloride 108 ml @ 200 mls/hr IV. 2048: I reevaluated the patient and she was feeling better. 2217: Reevaluated the patient and she was feeling better. Discussed results and discharge instructions: She verbalized understanding and agreement. The patient is ready for discharge. 2229: Ordered Albuterol 2 puffs INH. 2234: The patient requested a work note at this time. Medical Decision Differential diagnoses include acute bronchitis, exacerbation of asthma, dental infection, Og's angina, pneumonia, , dehydration, electrolyte imbalance, UTI. There is no leukocytosis or concerning anemia. No significant electrolyte abnormality, kidney failure or hepatitis. Patient was by our testing. Urinalysis does not show infection. Chest film does not show pneumonia or CHF. On exam, there was no airway compromise, no swelling to the floor of the mouth. No obvious drainable dental abscess. The patient was given IV Unasyn, she received a DuoNeb and oral Tylenol. She was given IV Benadryl and IV Reglan. She received IV saline and albuterol via MDI. She feels significantly improved. The patient is being discharged with a few Reglan tablets for nausea. Augmentin for her dental infection. Tylenol to be used for pain. Patient was encouraged to talk with her dentist as soon as possible. She can return here for any worsening symptoms. The patient's presentation is multifactorial. She was wheezing and having an asthma flare, the albuterol should help this. She has a dental infection which has led to pain and nausea. This requires Augmentin. She also is and this may be contributing to her nausea. Medication Reconcilliation Current Medication List: was personally reviewed by me Blood Pressure Screening Patient's blood pressure: Elevated blood pressure Blood pressure disposition: Elevated BP felt to be situational Impression Primary Impression: Dental infection Additional Impressions: Dehydration Nausea Wheezing Scribe Attestation The scribe's documentation has been prepared under my direction and personally reviewed by me in its entirety. I confirm that the note above accurately reflects all work, treatment, procedures, and medical decision making performed by me. Departure Information Dispostion Home / Self-Care Prescriptions Albuterol Hfa (VENTOLIN HFA) 200 Puffs/43813 Mcg Aers 3 PUFFS INH Q6H, #1 INHALER Prov: Aneesh Zavaleta M.D. 10/09/17 Amoxicillin & Pot Clavulanate (Augmentin 875-125 mg) 1 Tab Tab 875 MG PO BID for 10 Days, #20 TAB Prov: Aneesh Zavaleta M.D. 10/09/17 Metoclopramide (Reglan) 10 Mg Tab 10 MG PO Q6H Y for Nausea, #6 TAB Prov: Aneesh Zavaleta M.D. 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
[2017-10-09 21:20] VITALS: BP 127/71
[2017-10-09] MEDS ORDERED: AMOX875T PO (22:28)
[2017-10-09] MEDS ORDERED: METO-157 PO (22:28)
[2017-10-09] MEDS ORDERED: VNTHFA/IN INH (22:28)
[2017-10-09] MEDS ORDERED: ALBUTEROL HFA 8 GM INHALER INH ONE (22:30)
[2017-10-09 22:46] VITALS: PULSE 80; O2SAT 98
== END 2017-10-09 22:47 | disposition home or self-care (01) ==
LOC: C.EDB 19:13 → C.EDC 22:47
DX: O26.899 Other specified pregnancy related conditions, unspecified trimester (principal); K04.7 Periapical abscess without sinus; O99.280 Endocrine, nutritional and metabolic diseases complicating pregnancy, unspecified trimester; E86.0 Dehydration; O99.619 Diseases of the digestive system complicating pregnancy, unspecified trimester; R11.0 Nausea; O99.519 Diseases of the respiratory system complicating pregnancy, unspecified trimester; J45.909 Unspecified asthma, uncomplicated; Z98.891 History of uterine scar from previous surgery; Z83.3 Family history of diabetes mellitus; Z80.41 Family history of malignant neoplasm of ovary; Z82.49 Family history of ischemic heart disease and other diseases of the circulatory system

== ENCOUNTER 2017-10-12 01:28 | Emergency (ER) | payer OTHER ==
[~2017-10-12 01:28] MED LIST changes: +AMOX875T PO; -CLR10 PO; -HYDR-5688 PO; -IBUP-1277 PO; -LEVA45AE INH; +METO-157 PO; -MOME6000 NAE; -SERT50TA PO; +VNTHFA/IN INH
[2017-10-12 01:35] VITALS: TEMP 37.5; Ht 182.9 cm
[2017-10-12] MEDS ORDERED: ALBUT/IPRATROP 3MG/0.5MG NEB 3 ML VIAL ONE (01:40)
[2017-10-12] MEDS ORDERED: MAGNESIUM SULFATE 1GM / D5W 1 GM BAG IV STA (01:42)
[2017-10-12] MEDS ORDERED: ALBUT/IPRATROP 3MG/0.5MG NEB 3 ML VIAL INH STA ×2 (01:42→03:30)
[2017-10-12] MEDS ORDERED: VNTHFA/IN INH (02:06)
[2017-10-12] MEDS ORDERED: AMOX875T3 PO (02:07)
[2017-10-12] MEDS ORDERED: AMOX875T PO (02:10)
[2017-10-12] MEDS ORDERED: MOME200A INH (02:11)
[2017-10-12] MEDS ORDERED: PRENTAB26 PO (02:12)
[2017-10-12 02:13] LABS: ISTAT CREATININE 0.8 mg/dl (0.6-1.3); ISTAT IONIZED CALCIUM 1.14 mmol/l (1.12-1.32); ISTAT POTASSIUM 3.2 mEq/L (3.3-5.0)
[2017-10-12] MEDS ORDERED: BUPR-79 PO (02:14)
[2017-10-12] MEDS ORDERED: METHYLPREDNISOLONE 125 MG VIAL IV STA (02:18)
--- NOTE | 2017-10-12 03:18 | EMERGENCY ROOM VISIT NOTE ---
History Report prepared by Hilario: Claribel Curran Under the Supervision of: Dr. Koki Mccullough D.O. First contact with patient: 01:37 Chief Complaint: RESPIRATORY PROBLEMS Stated Complaint: HAVING TROUBLE BREATHING History of Present Illness The patient is a 26 year old female who presents to the Emergency Room with complaints of worsening respiratory problems starting this evening. The patient notes that she was at the ED 3 days ago for similar symptoms. She states that she has asthma and it is worsened by allergies. She states that she tried using her inhaler and albuterol at home with no relief. She states that she has been put on steroids in the past. The patient complains of nausea from and not being able to eat. The patient denies fever. Source of History: patient Onset: this evening Position: other (global) Quality: other (shortness of breath) Timing: worsening Associated Symptoms: + nausea, No fevers Note: The patient complains of not being able to eat. Review of Systems See HPI for pertinent positives & negatives. A total of 10 systems reviewed and were otherwise negative. Past Medical & Surgical Medical Problems: (1) Asthma (2) Bronchitis (3) Ovarian cyst Surgical Problems: (1) Previous section Family History Diabetes mellitus FH: ovarian cancer Hypertension Social History Smoking Status: Former Smoker Alcohol Use: none Drug Use: none Marital Status: in relationship Housing Status: lives with family Occupation Status: employed Current/Historical Medications Scheduled Amoxicillin & Pot Clavulanate (Augmentin 875-125 mg), 1 TAB PO BID Bupropion (Wellbutrin Sr), 150 MG PO DAILY Doxylamine-Pyridoxine (Diclegis), 2 TABS PO HS Mometasone Furoate-Formoterol (Dulera 200/5 Mcg), 2 PUFFS INH BID Multivit/Min/Iron/Fol Ac/Pren ( Vitamin), 1 TAB PO DAILY Prednisone (Prednisone), 0 PO DAILY Scheduled PRN Albuterol Hfa (Ventolin Hfa), 3 PUFFS INH Q6H PRN for Shortness of Breath Allergies Coded Allergies: No Known Allergies (Unverified , 10/12/17) Physical Exam Vital Signs Date Time Temp Pulse Resp B/P (MAP) Pulse Ox O2 Delivery O2 Flow Rate FiO2 10/12/17 05:56 84 20 134/87 97 10/12/17 03:36 91 24 134/92 96 Room Air 10/12/17 02:04 Room Air 10/12/17 01:35 37.5 96 36 130/90 94 Room Air Physical Exam GENERAL: alert, well appearing, well nourished, non-toxic, short of breath, can speak in short phrases EYE EXAM: normal conjunctiva, PERRL and EOM's grossly intact OROPHARYNX: no exudate, no erythema, lips, buccal mucosa, and tongue normal and mucous membranes are mildly dry NECK: supple, no nuchal rigidity, no adenopathy, non-tender LUNGS: Decreased breath sounds bilaterally. Bilateral expiratory wheezing. Normal chest wall mechanics HEART: no murmurs, S1 normal and S2 normal ABDOMEN: abdomen soft, non-tender, normo-active bowel sounds, no masses, no rebound or guarding. BACK: Back is symmetrical on inspection and there is no deformity, no midline tenderness, no CVA tenderness. SKIN: no rashes and no bruising UPPER EXTREMITIES: upper extremities are grossly normal. FROM, nml pulses. LOWER EXTREMITIES: No pitting edema. FROM, nml pulses. NEURO EXAM: Normal sensorium, cranial nerves II-XII grossly intact, normal speech, no gross weakness of arms, no gross weakness of legs. Medical Decision & Procedures Laboratory Results Test 10/12/17 02:00 Bedside Hemoglobin 13.9 g/dl (12.0-16.0) Bedside Hematocrit 41 % (37-47) Bedside Sodium 139 mEq/L (135-144) Bedside Potassium 3.2 mEq/L (3.3-5.0) Bedside Chloride 104 mEq/L (101-112) Bedside Total CO2 23 mEq/l (24-31) Anion Gap 16.0 mmol/L (16-25) Bedside Blood Urea Nitrogen 5 mg/dl (7-18) Bedside Creatinine 0.8 mg/dl (0.6-1.3) Bedside Glucose (other) 104 mg/dl (70-99) Bedside Ionized Calcium (Nay) 1.14 mmol/l (1.12-1.32) Laboratory results per my review. Medications Administered Medications (Trade) Dose Ordered Sig/Isabel Route Start Time Stop Time Status Last Admin Dose Admin Albuterol/ Ipratropium (Duoneb) 3 ml STK-MED ONCE .ROUTE 10/12/17 01:40 10/12/17 01:41 DC 10/12/17 01:40 3 ML Magnesium Sulfate (Magnesium Sulfate 1gm / D5W) 1 gm NOW STAT IV 10/12/17 01:42 10/12/17 01:44 DC 10/12/17 02:07 1 GM Methylprednisolone Sodium Succinate (Solu-Medrol IV) 60 mg NOW STAT IV 10/12/17 02:18 10/12/17 02:19 DC 10/12/17 02:36 60 MG Albuterol/ Ipratropium (Duoneb) 3 ml NOW STAT INH 10/12/17 03:30 10/12/17 03:32 DC 10/12/17 03:36 3 ML ED Course 0137: The patient was evaluated in room B12B. A complete history and physical exam was performed. 0142: Ordered Duoneb 3 ml INH, Magnesium Sulfate 1 gm IV. 0207: I reevaluated the patient. On repeat lung exam, she is moving more air, but still has bilateral expiratory wheezes. 0218: Ordered Solu-Medrol IV 60 mg IV. 0310: I reevaluated the patient and she is feeling much better. Her lung exam is much improved. 0330: Ordered Duoneb 3 ml INH. 0332: I reevaluated the patient and she is sleeping soundly. 0549: Upon reevaluation, the patient is feeling better. I discussed the findings and the treatment plan with the patient. She verbalizes agreement and understanding. The patient was discharged home. Medical Decision Differential diagnoses includes but is not limited to pneumonia, bronchitis, COPD/Asthma exacerbation, pneumothorax, pulmonary embolism, congestive heart failure, acute coronary syndrome Pt improved here with nebs. Never hypoxic. I do not suspect occult pneumonia/ effusion. I do not suspect cardiac etiology or PE. Pt symptoms improved as expected with treatment for asthma. I do not suspect bacteremia/sepsis. Patient has been ill recently secondary to the . No diarrhea. I do not suspect occult GI or pathology. Patient had blood work done 2 days ago which was normal. Symptoms consistent with early and she has had this pregnancies before. Patient is a . Patient encouraged to follow-up with GRADUATE TEACHING ASSOCIATE for routine care. Discussed symptoms to watch and return for regarding her breathing/asthma as well as regarding early . Discussed use of steroids, use of a spacer with her MDI, avoiding any potential triggers of her asthma, use of routine allergy medications during this time that is likely to be contributing to her asthma exacerbations. Given patient's repeat lung exam is improved with treatment of her asthma and no other adventitious sounds were noted, did not feel patient required chest x-ray. Using shared medical decision making we agreed on trying to minimize any potential radiation exposure patient's . Patient well-appearing here with stable vital signs throughout. All questions answered bedside. Patient ambulate with a steady gait and tolerating p.o. at time of discharge. Medication Reconcilliation Current Medication List: was personally reviewed by me Blood Pressure Screening Patient's blood pressure: Elevated blood pressure Blood pressure disposition: Elevated BP felt to be situational Impression Primary Impression: Acute asthma exacerbation Additional Impressions: Seasonal allergies Scribe Attestation The scribe's documentation has been prepared under my direction and personally reviewed by me in its entirety. I confirm that the note above accurately reflects all work, treatment, procedures, and medical decision making performed by me. Departure Information Dispostion Home / Self-Care Prescriptions Prednisone (Prednisone) 20 Mg Tab 0 PO DAILY, #12 TAB 3 TABS DAILY FOR 2 DAYS, THEN 2 TABS DAILY FOR 2 DAYS, THEN 1 TAB DAILY FOR 2 DAYS. Prov: Koki Mccullough, DO 10/12/17 Doxylamine-Pyridoxine (DICLEGIS) 1 Tab Tab 2 TABS PO HS for Nausea, #30 TAB Prov: Koki Mccullough, DO 10/12/17 Referrals No Doctor, Assigned (PCP) Forms HOME CARE DOCUMENTATION FORM, IMPORTANT VISIT INFORMATION, WORK / SCHOOL INSTRUCTIONS Patient Instructions My [facility] Additional Instructions Please avoid any potential triggers for your asthma. You may begin taking 1 of the [id number] allergy medications to help with seasonal allergies and avoid any exacerbation of her asthma. You may use Claritin, Zyrtec, or Samara , or one of their generics as can be bought in any pharmacy. Please avoid any cigarette smoke, perfumes, other inhaled chemicals which could trigger bronchospasm, extremes of temperature, or any other trigger that you have noted in the past of your asthma. 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 If you develop any worsening trouble breathing, worsening cough, noticed blood in your sputum, develop fevers or chills, chest pain, palpitations, abdominal pain, vaginal bleeding or abnormal discharge, vomiting, or you have any other new concerns, please return the emergency room. Problem Qualifiers Primary Impression: Acute asthma exacerbation Asthma severity: mild Asthma persistence: intermittent Qualified Codes: J45.21 - Mild intermittent asthma with (acute) exacerbation Additional Impressions: Weeks of gestation: less than 8 weeks Qualified Codes: Z3A.01 - Less than 8 weeks gestation of
[2017-10-12] MEDS ORDERED: PRED20TA PO (03:22)
[2017-10-12] MEDS ORDERED: DOXY30TA PO (03:22)
[2017-10-12 05:56] VITALS: BP 134/87; PULSE 84; O2SAT 97
== END 2017-10-12 05:56 | disposition home or self-care (01) ==
LOC: C.EDB 01:29
DX: O99.89 Other specified diseases and conditions complicating pregnancy, childbirth and the puerperium (principal); J45.21 Mild intermittent asthma with (acute) exacerbation; Z3A.01 Less than 8 weeks gestation of pregnancy; Z87.891 Personal history of nicotine dependence; Z83.3 Family history of diabetes mellitus; Z82.49 Family history of ischemic heart disease and other diseases of the circulatory system; Z80.41 Family history of malignant neoplasm of ovary; Z79.899 Other long term (current) drug therapy

== ENCOUNTER → 2018-01-10 | Outpatient (CLI) | payer OTHER ==
[~2018-01-10] MED LIST changes: -AMOX875T PO; -FLUT1AER4 INH; -METO-157 PO; +PRENTAB26 PO
--- NOTE | 2018-01-11 06:49 | PAP/PSG TECHNICIAN REPORT ---
[facility] Sports Physical Therapist Polysomnogram Report Study name: None Report date: 01/11/2018 Study date: 01/10/2018 Referring Physician: Kathy Humphreys Name: EVA PETTY Interpreting Physician: Alessia Smith M.D. Date of : 1990 Sports Physical Therapist: Pepper Saravia, PSGT. Sex: Female Age: 27 StudyType: PSG Weight: 289 lbs Height: 27 years, Height 5' 10" Neck Circum:15.5 inches BMI: 41.46 Medications: Flovent, Xopenex, Claritin 10 mg, Nasonex, Zoloft 50 mg. Patient History 27-year-old female here for a split night study. Loud snoring, witnessed apnea, unrefreshed sleep. Patient has WPW.Ess=10, Neck=15.5 inches. Parameters Monitored NPSG: E1-M2, E2-M1, Fp1-M2, Fp2-M1, F3-M2, F4-M2, F4-M1, C3-M2, C4-M2, C4-M1, O1-M2, O2-M2, O2-M1, T3-M2, T4-M1, P3-M2, P4-M1, CHIN1, CHIN2, HR, EKG, Legs, PFLOW, SNOR, FLOW, CFLOW, Tidal Volume, THOR, ABDO, SpO2, PLTH, CPRESS, ETCO2 Wave, ETCO2, pH Sleep Architecture Sleep Stages Time at Lights Off 11:08:13 PM STAGES Time (min.) TST (%) Time at Lights On 5:31:43 AM Wake 43.5 -- Total Recording Time (TRT) 384.50 min. N1 2.0 1 Total Sleep Period (TSP) 343.0 min. N2 214.5 63 Total Sleep Time (TST) 339.5min. N3 25.0 7 Awake Time 45.0 min. REM 98.0 29 Wake after Sleep Onset 4.0 min. Sleep Efficiency (SE) 89 % Sleep Onset Latency (ROGELIO) 40.0 min. Number of Stage 1 Shifts None Awakenings 2 Stage Changes 26 Number of REM periods 4 REM 98.0 29 REM Latency 72.5 min. NREM 241.5 71 Body Position Analysis Supine Right Left Side Prone Vertical Total Sleep Time (min.) 167.1 101.0 80.0 181.01 0.0 0.0 Total Sleep Time (%) 47% 30% 24% 53 0% N/A% Total Sleep Time REM (min.) 50.5 28.5 19.0 None 0.0 0.0 Total Sleep Time NREM (min.) 108.0 72.5 61.0 None 0.0 0.0 Intermittent Wake (min.) 8.6 33.2 1.7 None 0.0 0.0 Total Sleep Period (%) 47% None None None None None Arousals Myoclonus (PLM) * Events Count Index Events Count Index Spontaneous 69 12 Events Awake (PLMW) 3 4.1 Respiratory 3 0.5 Events Asleep w/ Arousal (PLMA) 7 1.2 PLM 7 1 Events Asleep w/o Arousal (PLMS) 120 21.2 Snoring 13 2 Total Asleep 127 22.4 Total 90 16 Total 130 20 Respiratory Analysis * CA OA MA CH H RERA Total Count 0 1 0 0 26 0 27 Index 0.0 0.2 0.0 0 4.6 0 4.8 Mean Duration 0.0 13.5 0.0 0.00 24.4 0.0 24.0 Longest Duration 0.0 13.5 0.0 0.00 0.0 0.0 54.1 Respiratory Event Summary Total Supine ~Supine Right Left Prone REM NREM Apneas Count 1 1 0 0 0 N/A 0 1 Index 0.2 0 0 0.0 0.0 N/A 0 0 Hypopneas (4% Desat) Count 26 15 11 5 6 N/A 22 4 Index 4.6 5.7 4 3.0 4.5 N/A 13.5 1.0 Apneas & All Hypopneas Count 27 16 11 5 6 N/A 22 5 Index 4.8 6 4 3 4 N/A 13.5 1.2 Respiratory Events (Hydrostatic Tester+All Hyp+RERA) Count 27 16 11 5 6 N/A 22 5 Index 4.8 6 4 3.0 4.5 N/A 13.5 1.2 Respiratory Related Arousal Count 3 16 2 1 1 N/A 2 1 Index 0.5 0 1 1 1 N/A 1 0 Snoring Analysis Supine Right Left Prone REM NREM Total Snore duration 10.0 min Snores count 249 232 76 N/A 175 382 557 Snore mean duration 1.1 Sec Snores index 94 138 57 N/A 107.1 94.9 98.4 TST with snoring (%) 3.0% Desaturation Event Summary: Minimum %SpO2 Event Count Mean/Min/Max Duration(sec.) Desaturation Index % Time In Bed > 90 31 29.6 / 5.8 / 60.0 5.0 98.0 86 - 90 0 N/A 0.0 1.8 81 - 85 1 11.0 / 11.0 / 11.0 62.3 0.3 76 - 80 1 14.3 / 14.3 / 14.3 576.0 0.0 71 - 75 0 N/A 0.0 0.0 66 - 70 0 N/A 0.0 0.0 61 - 65 0 N/A 0.0 0.0 56 - 60 0 N/A 0.0 0.0 51 - 55 0 N/A 0.0 0.0 < 50 0 N/A 0.0 0.0 Total REM NREM Awake <50% 0.0 min. 0.0 min. 0.0 min. 0.0 min. 51 - 60% 0.0 min. 0.0 min. 0.0 min. 0.0 min. 61 - 70% 0.0 min. 0.0 min. 0.0 min. 0.0 min. 71 - 80% 0.1 min. 0.0 min. 0.1 min. 0.0 min. 81 - 90% 7.6 min. 4.4 min. 1.0 min. 2.2 min. 91 - 100% 370.4 min. 92.7 min. 237.6 min. 40.0 min. Average 94 94 94 95 Minimum SpO2 80 86 80 85 Desaturation Event Index 5.2 15.3 2.0 0.0 # Desat. Events below 89% 5 3 2 N/A Time(%) with Saturation below 89% 0.9 0.3 0.1 0.4 Time(min.) with Saturation below 89% 3.3 1.1 0.5 1.6 Time (mins) REM (mins) NREM (mins) % of TST SpO2 Below 90% 20 14 N6 0.9 SpO2 Below 88% 2 0 0 0 Heart Rate Analysis Min (bpm) Max (bpm) Average (bpm) Awake 69 101 81 NREM 41 96 78 REM 41 127 79 Overall 41 127 78 Supplemental O2 Values Minimum O2 level: None Value Start Time End Time Sports Physical Therapist Comments PSG Study MS. Petty slept in the right, left, supine and prone positions. No cardiac arrhythmia or PLM's noted. No bruxism noted. Snoring was noted and scored as a 1 on a scale of 1 through 5. (0=no snoring, 5=snoring loud enough to be heard through a closed door or down the [address]) Ms. Petty awoke to use the restroom zero times during the night. Ms. Petty stated, I did not sleep as well as I do when I am in my own bed. The final report will be interpreted and signed by a sleep physician. The completed physician report will then be placed in the patient medical record Patient did not meet split night criteria; her AHI was 4.8 at the end of the study. Patient slept well throughout the study. Therapy (cm H2O) 0 TIB (min.) 383.0 TST (min.) 339.5 Sleep Onset (min.) 40.0 REM Onset From Sleep (min.) 72.5 Sleep Efficiency % 89 Wakefulness (%) 11 Wakefulness (min.) 45.0 NREM 1 (%) 1 NREM 1 (min.) 2.0 NREM 2 (%) 63 NREM 2 (min.) 214.5 NREM 3 (%) 7 NREM 3 (min.) 25.0 REM (%) 29 REM (min.) 98.0 # Arousals 90 Arousal Index 16 # Snore 557 Snore Index 98.4 AHI 4.8 AHI Supine 6 AHI Non-Supine 4 NREM AHI 1.2 REM AHI 13.5 RDI 4.8 # Obstructive Apnea 1 # Central Apnea 0 # Mixed Apnea 0 # Hypopneas 26 RERAs 0 Total Respiratory Events 27 Time Below SpO2 89% (min.) 1.6 Mean NREM SpO2 (%) 94 Mean REM SpO2 (%) 94 Mean Sleep SpO2 (%) 94 Min NREM SpO2 (%) 80 Min REM SpO2 (%) 86 Position Supine (min.) 167.1 Position Non-supine (min.) 181.0 LM Index Sleep 22.4 LM Index NREM 21.1 LM Index REM 25.7 Mean Heart Rate (bpm) 78 Min Heart Rate (bpm) 41
== END | disposition home or self-care (01) ==
LOC: C.NEUR 21:00
PROVIDERS: ATTEND Nurse Practitioner Family
DX: I45.6 Pre-excitation syndrome (principal); J45.30 Mild persistent asthma, uncomplicated; R06.83 Snoring; G47.10 Hypersomnia, unspecified